=== PATIENT | female | born 1985 | race Caucasian/White ===

== ENCOUNTER 2019-01-15 17:50 | Emergency (ER) | payer MEDICAID ==
[~2019-01-15] VITALS: Ht 154.9 cm; Wt 84.1 kg
[2019-01-15 18:07] VITALS: BP 101/72
--- NOTE | 2019-01-15 18:26 | NUR ---
PT TO XRAY
[2019-01-15] MEDS ORDERED: TETanus/Pertussis (Acell)/Diphther VAC/PF (Tdap-Adult) 0.5ml syringe IM ONE (20:20)
== END 2019-01-15 20:58 | disposition home or self-care (01) ==
LOC: ER 17:51
DX: S90.32XA Contusion of left foot, initial encounter (principal); W31.89XA Contact with other specified machinery, initial encounter; Y93.89 Activity, other specified; Y92.89 Other specified places as the place of occurrence of the external cause; Y99.8 Other external cause status
CPT/HCPCS: 73610; 90471; 90715; 99283

== ENCOUNTER 2024-10-22 19:06 | Emergency (ER) | payer BC, MEDICAID ==
[~2024-10-22] VITALS: Ht 154.9 cm; Wt 97.4 kg
[2024-10-22 19:11] VITALS: BP 170/106; PULSE 104; O2SAT 98
[2024-10-22] MEDS ORDERED: ACET1TAB96 PO (21:24)
[2024-10-22] MEDS: azithromycin 250mg tablet PO STA (21:29)
[2024-10-22] MEDS: acetaminophen w/codeine (30MG) #3 tablet PO STA (21:29)
[2024-10-22] MEDS ORDERED: AZIT-164 PO (21:52)
[2024-10-22 21:59] VITALS: RESP 16; TEMP 98.4
== END 2024-10-22 22:00 | disposition home or self-care (01) ==
LOC: ER 19:06
DX: R07.1 Chest pain on breathing (principal); R05.9 Cough, unspecified; Z20.822 Contact with and (suspected) exposure to COVID-19
CPT/HCPCS: 36415; 71046; 87502; 87503; 87811; 99284